=== PATIENT | male | born 1955 | race American Indian/Alaskan Native ===

== ENCOUNTER 2016-07-20 10:10 | Day surgery (SDC) | payer OTHER ==
[2016-07-20] MEDS ORDERED: NACL 0.9% 1000 ML 1,000 ML IV SCH (11:00)
--- NOTE | 2016-07-20 13:01 | Anesthesia Consultation ---
Anesthesia Consult and Med Hx Date of service: 07/20/16 - Airway Anesthetic Teeth Evaluation: Good ROM Head & Neck: Adequate Mental/Hyoid Distance: Adequate Mallampati Class: Class II Intubation Access Assessment: Probably Good - Pre-Operative Health Status ASA Pre-Surgery Classification: ASA1 Proposed Anesthetic Plan: MAC
--- NOTE | 2016-07-20 13:02 | Anesthesia Day of Surgery ---
Anesthesia Day of Surgery - Day of Surgery Patient Examined: Yes Patient H&P Reviewed: Yes Patient is NPO: Yes
[2016-07-20] MEDS ORDERED: DIPRIVAN 10 MG/ML IV ONE ×2 (15:26)
[2016-07-20] MEDS ORDERED: SUBLIMAZE ONE (17:04)
[2016-07-20] MEDS ORDERED: VERSED IV ONE ×4 (17:05→17:40)
[2016-07-20] MEDS ORDERED: WATER FOR IRRIG STERILE IR ONE (17:12)
[2016-07-20] MEDS ORDERED: SUBLIMAZE IV ONE ×3 (17:20→17:40)
[2016-07-20] MEDS ORDERED: WATER FOR IRRIG STERILE ONE (17:26)
--- NOTE | 2016-07-20 17:40 | Post Anesthesia Evaluation ---
- Post Anesthesia Evaluation Patient Participated: No (pt resting comfortable) Airway Patent: Yes Stable Respiratory Function: Yes Nausea/Vomiting: No Temp > 96.8F: Yes Pain Manageable: Yes Adequeate Hydration: Yes Anesthesia Complications: No Block Receding Appropriately: Not Applicable Patient on Ventilator: No
--- NOTE | 2016-07-20 18:23 | Operative Report ---
Operative Report Operative Report: Date of procedure: 07/20/2016 Procedure: Colonoscopy with multiple hot biopsy polypectomies, multiple polyp ablations, Hemoclip application on polypectomy site. Attending physician: Abe Soria MD Vocal Artist: Abe Soria MD Indication: Patient is a 61-year-old male who presents for colorectal cancer screening. A colonoscopy is done to evaluate patient so that treatment may be directed based on findings. Consent: Informed consent was obtained after advising the patient and family regarding nature of this procedure, its indications, potential benefits as well as possible complications including but not limited to bleeding perforation and adverse reaction to medication, infection as well as other cardiopulmonary complications. An informed written and verbal consent was then obtained after due opportunity was provided for questions and answers. Monitoring: Patient was monitored continuously with pulse oximetry and electrocardiographic recordings as well as blood pressure recordings. Vital signs remained stable throughout this procedure with no untoward events. Preoperative assessment: Patient was assessed immediately prior to this procedure for capacity to tolerate monitored anesthesia care and moderate sedation as well as general anesthesia. Patient's ASA classification is 2, Mallampati class is 2, Hyomental distance is 3. Instrument: Intrakr video colonoscope. Medications: Midazolam 5 mg and Fentanyl 100 mcg given intravenously in divided doses. Description of procedure: Patient was placed in the left lateral decubitus position after achieving sedation, a digital rectal examination was performed following which the colonoscope was introduced into the anal verge and advanced to the cecum which was identified by the cecal valve, the appendiceal orifice, as well as by the cecal strap and direct transillumination. The colonoscope was subsequently withdrawn with careful inspection of all mucosal surfaces. Patient tolerated this procedure well and was subsequently taken to the recovery room. The following findings were noted. Findings: Patient had a 1 cm sessile polyp in the ascending colon which was removed by hot biopsy polypectomy. The base of the polyp was ablated. At the hepatic flexure, patient had another 1 cm polyp. It was my hot biopsy polypectomy Hemoclip was applied over the site. The transverse colon was normal the descending colon, patient had a broad base 1 cm polyp which was again removed by hot biopsy polypectomy. The rest of the colon appeared relatively normal except that there was significant retained stool in the sigmoid colon and also in the distal descending colon. On the retroflex view at the anal verge patient had internal hemorrhoids. Patient also had some retained stool in the ascending colon. Impression: Descending colon polyp status post hot biopsy polypectomy and ablation Hepatic flexure polyp status post hot biopsy polypectomy with Hemoclip application. Descending colon polyp status post hot biopsy polypectomy Internal hemorrhoids. Retained stool. Plan: Follow pathology report. High-fiber diet. Consider repeat colonoscopy in one year given retained stool and findings of multiple colon polyps.
[2016-07-20 18:47] VITALS: BP 132/72
--- NOTE | 2016-07-20 18:47 | Discharge Summary ---
Short Stay Discharge Plan Activity: advance as tolerated Weight Bearing Status: Weight Bear as Tolerated Diet: regular Additional Instructions: Post Sedation D/C Instructions When you return home you may resume your regular diet unless otherwise directed. -Go directly home from the hospital and rest quietly. You may resume normal activities tomorrow. -Do NOT drive, return to work, operate any machinery or make any important personal or business decisions today. -Do NOT drink any alcohol or take nerve or sleeping drugs. They add to the effects of the medicine still present in your body. Follow up with your doctor for treatment plan Follow up with: NEAL REY MD [Primary Care Provider] - 7 Days
== END 2016-07-20 10:11 | disposition home or self-care (01) ==
LOC: GIO 10:10
PROVIDERS: ATTEND Internal Medicine Gastroenterology
DX: Z12.11 Encounter for screening for malignant neoplasm of colon (principal); D12.2 Benign neoplasm of ascending colon; K63.5 Polyp of colon; K64.8 Other hemorrhoids; M19.90 Unspecified osteoarthritis, unspecified site
CPT/HCPCS: 45384; 88305; J2250; J3010; J7030; J2704

== ENCOUNTER 2017-09-12 17:16 | Emergency (ER) | payer OTHER ==
[2017-09-12 17:24] VITALS: BP 134/84
[2017-09-12] MEDS ORDERED: MOTRIN PO ONE (17:42)
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
== END 2017-09-12 18:28 | disposition home or self-care (01) ==
LOC: ED 17:16
DX: S86.911A Strain of unspecified muscle(s) and tendon(s) at lower leg level, right leg, initial encounter (principal); M54.2 Cervicalgia; V87.7XXA Person injured in collision between other specified motor vehicles (traffic), initial encounter; Y93.89 Activity, other specified; Y99.8 Other external cause status; Y92.410 Unspecified street and highway as the place of occurrence of the external cause
CPT/HCPCS: 99283

== ENCOUNTER 2021-03-24 11:16 | Outpatient (CLI) | payer OTHER ==
--- NOTE | 2021-03-24 14:27 | XRay Report ---
RIGHT SHOULDER 3 VIEWS 1204 INDICATION: Right shoulder pain COMPARISON: None available. FINDINGS: No fractures or dislocations are seen. Slight glenohumeral degenerative changes are noted. RIGHT KNEE 3 VIEWS 1207 INDICATION: RIGHT knee PAIN COMPARISON: Partial image set from 09/12/2017 FINDINGS: No fractures or dislocations are seen. There could be a minimal joint effusion. Moderate pa tellofemoral and medial degenerative changes are seen with prominent lateral degenerative change. Lat eral joint space narrowing is again seen. Findings are similar to available images of prior examinati on. RIGHT ANKLE 3 VIEWS 1208 INDICATION: RIGHT ANKLE PAIN COMPARISON: None available. FINDINGS: Screws are seen in the medial malleolus. Ovoid density in the distal tibial metaphysis has a benign type of appearance. No acute fractures or dislocations are seen. Mild medial soft tissue swe lling is noted. Mild ankle and tarsal degenerative changes are seen. Signer Name: Wiliam Hare MD Signed: 03/24/2021 2:22 PM Workstation Name: [id number]
== END 2021-03-24 11:17 | disposition home or self-care (01) ==
LOC: XRAY 11:16
PROVIDERS: ATTEND Internal Medicine
DX: M17.11 Unilateral primary osteoarthritis, right knee (principal); M25.461 Effusion, right knee; M19.071 Primary osteoarthritis, right ankle and foot; N64.4 Mastodynia